=== PATIENT | male | born 1965 | race Caucasian/White ===

== ENCOUNTER 2017-09-06 08:45 | Inpatient (IN) | payer MEDICAID, OTHER ==
[~2017-09-06] VITALS: Ht 170.2 cm; Wt 49.5 kg
[2017-09-06] MEDS ORDERED: SODIUM CHLORIDE 0.9% 1,000 ML IV ONE (10:43)
[2017-09-06] MEDS ORDERED: ALBUTEROL SULF 2.5 MG/0.5ML(0.5%) NEB SOLN HHN ONE (10:45)
[2017-09-06] MEDS ORDERED: IPRATROPIUM BROM 0.5 MG/2.5ML INH SOL HHN ONE (10:45)
[2017-09-06] MEDS ORDERED: LEVOFLOXACIN 500MG 100 ML IV ONE (10:45)
[2017-09-06] MEDS ORDERED: MORPHINE SULFATE 4 MG/ML SYR/VIAL IV ONE (10:45)
[2017-09-06] MEDS ORDERED: ONDANSETRON HCL 4 MG/2 ML VIAL IV ONE (10:45)
[2017-09-06 10:53] LABS: Hematocrit 34.7 % (41.0-53.0); Hemoglobin 12.2 g/dL (13.5-17.5); Mean Corpuscular Hemoglobin 30.3 pg (28.0-32.0); Mean Corpuscular Hgb Conc. 35.1 g/dL (32.0-36.0); Mean Corpuscular Volume 86.3 fL (80.0-100.0); Platelet Count (auto) 219 10^3/uL (140-450); Red Blood Cells 4.02 10^6/uL (4.5-5.90); Red Cell Distribution Width 15.6 % (11.8-14.3); White Blood Cell 5.9 10^3/uL (4.4-10.8)
[2017-09-06 10:56] LABS: Band Neutrophils % (manual) 0; Basophils % (manual) 0 (0.0-2.0); Blast Cells 0; Metamyelocytes % 0; Myelocytes % 0; Promyelocytes % 0; Reactive Lymphocytes 0
[2017-09-06 11:16] LABS: Alanine Aminotransferase 13 U/L (16-61); Albumin 2.6 g/dL (3.4-5.0); Alkaline Phosphatase 267 U/L (45-117); Anion Gap 13 (5-15); Aspartate Aminotransferase 30 U/L (15-37); BUN/Creatinine Ratio 9.4; Bilirubin, Total 0.3 mg/dL (0.2-1.0); Blood Urea Nitrogen 3 mg/dL (7-18); Calcium 8.2 mg/dL (8.5-10.1); Carbon Dioxide 26 mmol/L (21-32); Chloride 83 mmol/L (98-107); GFR African American 373 mL/min; GFR Non-African American 308 mL/min; Glucose 88 mg/dL (74-106); Magnesium 2.2 mg/dL (1.6-2.6); Potassium 3.5 mmol/L (3.5-5.1); Sodium 122 mmol/L (136-145)
[2017-09-06 12:09] LABS: Eosinophils % (manual) 1 (0-7); Lymphocytes % (manual) 5 (10.0-50.0); Monocytes % (manual) 5 (0-12)
[2017-09-06 12:10] LABS: Urine Bacteria NONE SEEN /hpf (None Seen); Urine Blood Negative /uL (Negative); Urine Mucus FEW (None Seen); Urine Specific Gravity 1.011 (1.001-1.035); Urine WBC 2 /hpf (0 - 3)
[2017-09-06] MEDS ORDERED: LACTULOSE 20Gm/30ML SOLN PO PRN (13:15)
[2017-09-06] MEDS ORDERED: PROMETHAZINE HCL 25 MG/ML 1ML IV PRN (13:15)
[2017-09-06] MEDS ORDERED: ALBUTEROL SULF 2.5 MG/0.5ML(0.5%) NEB SOLN NEB PRN (13:15)
[2017-09-06] MEDS ORDERED: HYDROcodone-ACET 5/325MG TAB PO PRN (13:15)
[2017-09-06] MEDS ORDERED: ACETAMINOPHEN 500 MG TAB PO PRN (13:15)
[2017-09-06] MEDS ORDERED: LORazepam 0.5 MG TAB PO PRN (13:15)
[2017-09-06] MEDS ORDERED: OSELTAMIVIR 75 MG CAP PO ONE (13:15)
[2017-09-06] MEDS ORDERED: NITROGLYCERIN 0.4 MG SL TAB SL PRN (13:15)
[2017-09-06] MEDS ORDERED: MORPHINE SULFATE 4 MG/ML SYR/VIAL IV PRN (13:15)
[2017-09-06] MEDS ORDERED: TEMAZEPAM 15 MG CAP PO PRN (13:15)
[2017-09-06] MEDS: SODIUM CHLORIDE 0.9% 1,000 ML IV SCH ×2 (15:03→23:11)
[2017-09-06] MEDS: MORPHINE SULFATE 4 MG/ML SYR/VIAL IV PRN ×3 (15:13→22:17)
[2017-09-06 15:39] VITALS: BP 103/78
[2017-09-06] MEDS: IPRATROPIUM BROM 0.5 MG/2.5ML INH SOL NEB SCH (18:19)
[2017-09-06] MEDS: ALBUTEROL SULF 2.5 MG/0.5ML(0.5%) NEB SOLN NEB SCH (18:19)
[2017-09-06] MEDS: methylPREDNISolone SOD SUCC 40 MG/ML VL IV SCH (18:37)
[2017-09-06] MEDS ORDERED: OSELTAMIVIR 75 MG CAP PO SCH (22:00)
[2017-09-07] MEDS: ALBUTEROL SULF 2.5 MG/0.5ML(0.5%) NEB SOLN NEB SCH ×4 (00:19→18:46)
[2017-09-07] MEDS: IPRATROPIUM BROM 0.5 MG/2.5ML INH SOL NEB SCH ×4 (00:19→18:46)
[2017-09-07] MEDS: methylPREDNISolone SOD SUCC 40 MG/ML VL IV SCH ×5 (00:45→23:45)
[2017-09-07] MEDS: MORPHINE SULFATE 4 MG/ML SYR/VIAL IV PRN ×6 (03:27→23:46)
[2017-09-07 05:45] LABS: Basophils # (auto) 0 uL; Basophils % (auto) 0.2 % (0.0-2.0); Eosinophils # (auto) 0 uL; Eosinophils % (auto) 0.1 % (0.0-7.0); Hematocrit 30.6 % (41.0-53.0); Hemoglobin 10.7 g/dL (13.5-17.5); Lymphocytes # (auto) 0.1 uL; Lymphocytes % (auto) 3.3 % (10.0-50.0); Mean Corpuscular Hemoglobin 30.2 pg (28.0-32.0); Mean Corpuscular Hgb Conc. 34.9 g/dL (32.0-36.0); Mean Corpuscular Volume 86.3 fL (80.0-100.0); Monocytes # (auto) 0.1 uL; Monocytes % (auto) 2.2 % (0.0-12.0); Neutrophils # (auto) 3.8 uL; Neutrophils % (auto) 94.2 % (37.0-80.0); Nucleated Red Blood Cells % 0.1 %; Platelet Count (auto) 184 10^3/uL (140-450); Red Blood Cells 3.54 10^6/uL (4.5-5.90); White Blood Cell 4.1 10^3/uL (4.4-10.8)
[2017-09-07 05:59] LABS: Albumin 2.4 g/dL (3.4-5.0); BUN/Creatinine Ratio 16.7; Calcium 8.6 mg/dL (8.5-10.1); Potassium 3.9 mmol/L (3.5-5.1)
[2017-09-07 06:01] LABS: Bilirubin, Total 0.1 mg/dL (0.2-1.0); Total Protein 6.4 g/dL (6.4-8.2)
[2017-09-07] MEDS: SODIUM CHLORIDE 0.9% 1,000 ML IV SCH ×2 (09:03→19:01)
[2017-09-07] MEDS: cefTRIAXone 1GM/10ml IVPUSH 10 ML IV SCH (09:03)
[2017-09-07] MEDS: AZITHROMYCIN 500MG/ 250ML 250 ML IV SCH (10:07)
[2017-09-07] MEDS ORDERED: LIDOCAINE 2%HCL (LOCAL ANESTH.) INJ 20ML MDV ONE ×2 (12:59→14:34)
[2017-09-07] MEDS ORDERED: fentaNYL CITRATE 100 MCG/2 ML VL ONE (14:11)
[2017-09-07] MEDS ORDERED: MIDAZOLAM HCL 1MG/1ML-2 ML VIAL ONE (14:37)
[2017-09-07 19:55] VITALS: BP 125/85
[2017-09-08] MEDS: ALBUTEROL SULF 2.5 MG/0.5ML(0.5%) NEB SOLN NEB SCH ×3 (00:11→12:35)
[2017-09-08] MEDS: IPRATROPIUM BROM 0.5 MG/2.5ML INH SOL NEB SCH ×3 (00:11→12:35)
[2017-09-08] MEDS: MORPHINE SULFATE 4 MG/ML SYR/VIAL IV PRN ×7 (01:55→21:02)
[2017-09-08] MEDS: SODIUM CHLORIDE 0.9% 1,000 ML IV SCH ×2 (04:18→18:08)
[2017-09-08] MEDS: methylPREDNISolone SOD SUCC 40 MG/ML VL IV SCH ×3 (06:15→18:08)
[2017-09-08 08:00] VITALS: BP 137/93
[2017-09-08] MEDS: cefTRIAXone 1GM/10ml IVPUSH 10 ML IV SCH (09:18)
[2017-09-08] MEDS: AZITHROMYCIN 500MG/ 250ML 250 ML IV SCH (09:19)
[2017-09-08 12:00] VITALS: BP 122/84
[2017-09-08 16:00] VITALS: BP 136/92
[2017-09-08 19:55] VITALS: BP 136/92
[2017-09-08 20:00] VITALS: BP 137/93
== END 2017-09-08 21:54 | disposition hospice, inpatient (51) | DRG 133 ==
LOC: EDBD 08:45 → ER 08:45 → OVERFLOW 08:46 → DOU IN ICU 09-07 17:50 → ICU CENTRL 09-07 17:50
PROVIDERS: ADMIT Internal Medicine; ATTEND Internal Medicine
PROC: 0W9D3ZZ Drainage of Pericardial Cavity, Percutaneous Approach (ICD-10-PCS; principal; 2017-09-06)
DX: J96.00 Acute respiratory failure, unspecified whether with hypoxia or hypercapnia (principal); J98.51 Mediastinitis; E43 Unspecified severe protein-calorie malnutrition; C80.0 Disseminated malignant neoplasm, unspecified; C34.90 Malignant neoplasm of unspecified part of unspecified bronchus or lung; I31.3 Pericardial effusion (noninflammatory); J90 Pleural effusion, not elsewhere classified; D64.9 Anemia, unspecified; J44.1 Chronic obstructive pulmonary disease with (acute) exacerbation; E87.8 Other disorders of electrolyte and fluid balance, not elsewhere classified; Z66 Do not resuscitate; I51.7 Cardiomegaly; E87.1 Hypo-osmolality and hyponatremia; I70.0 Atherosclerosis of aorta; Z87.891 Personal history of nicotine dependence; Z92.21 Personal history of antineoplastic chemotherapy; Z92.3 Personal history of irradiation; Z88.0 Allergy status to penicillin; Z68.1 Body mass index [BMI] 19.9 or less, adult
CPT/HCPCS: 33010; 36415; 71045; 71250; 76930; 80053; 81001; 83605; 83735; 83880; 84484; 85007; 85025; 85027; 87040; 87077; 87081; 87086; 87186; 87205; 87804; 89051; 93005; 93306; 94640; 94644; 96365; 96375; 99152; 99291; G0378; J1956; J2250; J2405